=== PATIENT | male | born 1960 | race Caucasian/White ===

== ENCOUNTER → 2020-06-28 13:04 | Outpatient (BNVA) | payer OTHER, SELFPAY | PROVIDERS: PCP Family Medicine; Visit Provider Anesthesiology | DX: M25.572 Pain in left ankle and joints of left foot (principal); M71.22 Synovial cyst of popliteal space [Baker], left knee | CPT/HCPCS: 99213 ==

== ENCOUNTER 2020-06-29 13:19 | Outpatient (REF) | payer OTHER, SELFPAY ==
--- NOTE | 2020-06-29 13:42 | US_ITS ---
EXAMINATION: ULTRASOUND EXTREMITY NONVASCULAR CLINICAL INFORMATION: Pain behind left knee. Rule out Valencia's cyst. COMPARISON: None TECHNIQUE: Sonographic evaluation of the left posterior knee FINDINGS: There is no Valencia's cyst identified. No fluid collection. No mass. Patent appearance of the popliteal artery and vein. IMPRESSION: No Valencia's cyst or suspicious abnormality identified.
== END 2020-06-29 13:20 | disposition home or self-care (01) ==
LOC: HO.US 13:19
PROVIDERS: PCP Family Medicine; Visit Provider Family Medicine
DX: M25.562 Pain in left knee (principal)
CPT/HCPCS: 76882

== ENCOUNTER → 2020-08-14 10:18 | Outpatient (BNVA) | payer OTHER, SELFPAY | PROVIDERS: Visit Provider Orthopaedic Surgery | DX: M71.22 Synovial cyst of popliteal space [Baker], left knee (principal); M25.572 Pain in left ankle and joints of left foot; F17.210 Nicotine dependence, cigarettes, uncomplicated | CPT/HCPCS: 99202 ==

== ENCOUNTER 2020-09-07 14:01 | Outpatient (REF) | payer OTHER, SELFPAY | END 2020-09-07 14:02 | disposition home or self-care (01) | LOC: HO.LAB 14:01 | PROVIDERS: Visit Provider Internal Medicine | DX: Z20.828 Contact with and (suspected) exposure to other viral communicable diseases (principal) | CPT/HCPCS: C9803; U0003 ==